=== PATIENT | female | born 1955 | race Caucasian/White ===

== ENCOUNTER → 2020-01-15 | Outpatient (CLI) | payer MEDICARE | END | disposition home or self-care (01) | LOC: CVU 12:31 | PROVIDERS: ATTEND Internal Medicine Cardiovascular Disease | DX: I05.1 Rheumatic mitral insufficiency (principal); I48.91 Unspecified atrial fibrillation; I10 Essential (primary) hypertension | CPT/HCPCS: 93306; 93356 ==

== ENCOUNTER 2020-03-21 11:37 | Outpatient (CLI) | payer MEDICARE ==
[2020-03-24] MEDS ORDERED: LOSA100T14 PO (10:06)
[2020-03-24] MEDS ORDERED: probiotic PO (10:06)
[2020-03-24] MEDS ORDERED: levocetirizine PO (10:06)
[2020-03-24] MEDS ORDERED: SPIR25TA5 PO (10:06)
[2020-03-24] MEDS ORDERED: AMIO100T4 PO (10:06)
[2020-03-24] MEDS ORDERED: APIX5TAB PO (10:06)
[2020-03-24] MEDS ORDERED: albuterol (10:06)
[2020-03-24] MEDS ORDERED: MELO15TA24 PO (10:06)
[2020-03-24] MEDS ORDERED: BUTALBITAL (10:06)
[2020-03-24] MEDS ORDERED: UBID100C41 PO (10:06)
== END 2020-03-21 23:59 | disposition home or self-care (01) ==
LOC: STAR 11:37
PROVIDERS: ATTEND Anesthesiology
DX: Z01.818 Encounter for other preprocedural examination (principal); Z11.59 Encounter for screening for other viral diseases
CPT/HCPCS: 36415; 87635